=== PATIENT | female | born 2000 | race Two or more races ===

== ENCOUNTER 2022-10-14 16:45 | Emergency (ER) | payer SELFPAY ==
[~2022-10-14] VITALS: Ht 170.2 cm; Wt 88.2 kg
[2022-10-14 17:00] VITALS: BP 117/41; PULSE 72; RESP 18; O2SAT 99
[2022-10-14] MEDS ORDERED: BACDST PO (18:33)
[2022-10-14] MEDS ORDERED: CEPH500C PO (18:33)
[2022-10-14] MEDS ORDERED: IBUP1TAB5 PO (18:33)
== END 2022-10-14 19:15 | disposition home or self-care (01) ==
LOC: ER 16:45
DX: L05.91 Pilonidal cyst without abscess (principal); Z79.1 Long term (current) use of non-steroidal anti-inflammatories (NSAID); Z79.899 Other long term (current) drug therapy